=== PATIENT | male | born 1985 | race Caucasian/White ===

== ENCOUNTER 2025-01-19 07:03 | Emergency (ER) | payer OTHER ==
[~2025-01-19] VITALS: Ht 180.3 cm; Wt 149.7 kg
[~2025-01-19 07:03] MED LIST: HYDACE5 PO; NAPR500 PO
[2025-01-19 07:16] VITALS: BP 201/113
[2025-01-19] MEDS ORDERED: METF500 PO (07:22)
[2025-01-19] MEDS ORDERED: AMLO10 PO (07:22)
[2025-01-19] MEDS ORDERED: DOCU100 PO (07:57)
[2025-01-19] MEDS ORDERED: BISA10S PR (07:57)
[2025-01-19] MEDS ORDERED: PROBIOTIC1 EA13 PO (07:57)
== END 2025-01-19 08:40 | disposition home or self-care (01) ==
LOC: ER 07:03
DX: K59.00 Constipation, unspecified (principal); Z79.899 Other long term (current) drug therapy; Z79.84 Long term (current) use of oral hypoglycemic drugs
CPT/HCPCS: 74018